=== PATIENT | female | born 1985 | race Caucasian/White ===

== ENCOUNTER 2022-10-12 10:49 | Day surgery (SDC) | payer BC, SELFPAY ==
[2022-10-12 11:17] LABS: Ur HCG Qualitative* Negative (Negative)
[2022-10-12] MEDS: LACTATED RINGERS 1000 ML 1,000 ML 100 ML IV (11:30)
[2022-10-12] MEDS: SODIUM CHLORIDE 0.9 % (FLUSH) 10 ML SYRINGE IVF (11:30)
[2022-10-12 11:33] VITALS: BMI 39.4
[2022-10-12 11:39] VITALS: BP 143/85; PULSE 74; RESP 16; TEMP 37.2; O2SAT 97
--- NOTE | 2022-10-12 12:05 | W.ANESCHARGE ---
Anesthesia Charges Start Date/Time Anesthesia Start Date: 10/12/22 Anesthesia Start Time: 12:05 Stop Date/Time Anesthesia Stop Date: 10/12/22 Anesthesia Stop Time: 12:55
[2022-10-12] MEDS: BUPIVACAINE 0.25% 30 ML INJECTION (12:21)
[2022-10-12 12:55] VITALS: BP 139/83; PULSE 66; RESP 16; TEMP 37.1; O2SAT 97
[2022-10-12 13:00] VITALS: BP 135/78; PULSE 63; RESP 16; O2SAT 97
[2022-10-12 13:15] VITALS: BP 127/70; PULSE 68; RESP 16; O2SAT 96
[2022-10-12] MEDS: KETOROLAC 15 MG/ML inj IVP (13:15)
[2022-10-12] MEDS: ACETAMINOPHEN 325 MG TABLET 650 MG PO (13:15)
[2022-10-12 13:30] VITALS: BP 122/84; PULSE 64; RESP 16; O2SAT 96
--- NOTE | 2022-10-12 13:30 | PM.GSPRC ---
Operative Note Pre-op diagnosis: Subcutaneous Mass of the forehead Post-op diagnosis: Lipoma of the forehead Type of Procedure: Excision of forehead mass, 2 cm Indications: Patient is a 37-year-old female who presented to clinic with an enlarging subcutaneous mass in the middle of her forehead. Different treatment options were reviewed including observation versus excision. Risks and benefits of operative intervention were discussed at length with the patient. Risks included, but were not limited to: Bleeding, infection, risk of damage surrounding structures and possible need for additional procedures. All questions and concerns were addressed with patient agreeing to proceed. Procedure Description: After discussing the risks and benefits of the procedure, the patient signed informed consent.? The operative site was marked and the patient was brought to the operating room and placed on the operating table in supine position.? Care was taken to pad the patient's pressure points.?? The patient was then given sedation by anesthesia.?? The operative site was then prepped and draped in the usual sterile fashion.? A time-out was then performed. A transverse incision was made at the top of her forehead within the hairline. Dissection was carried down into subcutaneous tissue. A tunnel was created inferiorly with evidence of an approximately 2 cm subcutaneous lipoma. This was dissected out circumferentially and removed in its entirety. Final measurements of the mass were 2 cm x 2 cm x 1 cm in size. The specimen was passed off to be sent to pathology. Hemostasis was assured with electrocautery. The incision was then closed in layers with interrupted 3 0 Vicryl and running 4-0 Monocryl. Dermabond was applied. ? The patient was then woken and transported to the recovery area in stable condition. ? The patient tolerated the procedure well. Findings: Lipoma of the forehead Anesthesia: MAC and local Surgeon: Cathi Jain MD Estimated blood loss (mL): 2 Additional Specimen Information: Mass of the forehead Condition: stable Disposition: same day
[2022-10-12 13:45] VITALS: BP 123/80; PULSE 73; RESP 16; O2SAT 96
--- NOTE | 2022-10-25 12:54 | W.ANESCHARGE ---
Anesthesia Charges Start Date/Time Anesthesia Start Date: 10/12/22 Anesthesia Start Time: 12:05 Stop Date/Time Anesthesia Stop Date: 10/12/22 Anesthesia Stop Time: 12:55
== END 2022-10-12 13:51 | disposition home or self-care (01) ==
PROVIDERS: Anesthesiology; PCP Family Medicine; Visit Provider Surgery
PROC: (CPT 21012; principal; 2022-10-12 12:45)
DX: D17.0 Benign lipomatous neoplasm of skin and subcutaneous tissue of head, face and neck (principal)
CPT/HCPCS: 21012; 00300; 81025; 88305; A9270; J0665; J1100; J1885; J2250; J2405; J2704; J3010; J7120